=== PATIENT | male | born 1965 | race Caucasian/White ===

== ENCOUNTER 2016-12-18 17:41 | Emergency (ER) | payer BC, OTHER ==
[~2016-12-18] VITALS: Ht 180.3 cm; Wt 104.7 kg
[2016-12-18] MEDS ORDERED: NORCO 5/3251 TABLET PO (18:23)
[2016-12-18] MEDS ORDERED: NAPROSYN500 MG PO (18:23)
[2016-12-18] MEDS ORDERED: LIDODERM 5% P1 PATCH TD (18:23)
[2016-12-18 18:29] VITALS: BP 158/89
== END 2016-12-18 18:30 | disposition home or self-care (01) ==
LOC: EME 17:41
DX: M25.511 Pain in right shoulder (principal); F17.200 Nicotine dependence, unspecified, uncomplicated
CPT/HCPCS: 99281; 99283